=== PATIENT | female | born 1950 | race Caucasian/White ===

== ENCOUNTER → 2018-10-30 | Outpatient (CLI) | payer OTHER ==
[~2018-10-30] MED LIST: ASPI-496 PO; CHOL200024 PO; CRAN300T PO; ESOM20CA PO; LEVO100T5 PO; LORA-856 PO; RED600TA PO; VITA400T6 PO; potassium PO
== END | disposition home or self-care (01) ==
LOC: STAR 10:42
PROVIDERS: ATTEND Orthopaedic Surgery
DX: Z01.818 Encounter for other preprocedural examination (principal); M67.431 Ganglion, right wrist
CPT/HCPCS: 93005

== ENCOUNTER 2018-11-07 12:52 | Day surgery (SDC) | payer OTHER ==
[~2018-11-07] VITALS: Ht 168.9 cm; Wt 88.5 kg
[~2018-11-07 12:52] MED LIST changes: +BUPIVACAINE/PF 0.25% ONE; +EPINEPHRINE 1 MG/ML, 1ML ONE
[2018-11-07] MEDS ORDERED: LACTATED RINGERS 1,000 ML IV SCH (13:14)
[2018-11-07] MEDS ORDERED: AMLO-150 PO (13:16)
[2018-11-07 13:47] VITALS: BP 165/84
[2018-11-07] MEDS ORDERED: FENTANYL PF 250 MCG/5ML ONE (14:18)
[2018-11-07] MEDS ORDERED: MIDAZOLAM 1 MG/ML, 2ML ONE (14:18)
[2018-11-07] MEDS ORDERED: PROPOFOL 10 MG/ML, 20ML ONE (14:42)
[2018-11-07] MEDS ORDERED: ROCURONIUM 10MG/ML,5ML ONE (14:42)
[2018-11-07] MEDS ORDERED: ONDANSETRON 2MG/ML, 2ML ONE (14:43)
[2018-11-07] MEDS ORDERED: DEXAMETHASONE 4 MG/ML, 1ML ONE (14:43)
[2018-11-07] MEDS ORDERED: KETOROLAC 30 MG/1 ML ONE (14:59)
[2018-11-07] MEDS ORDERED: LABETALOL 5MG/ML, 20ML IV PRN (15:00)
[2018-11-07] MEDS ORDERED: ACETAMINOPHEN 325 MG TABLET PO PRN (15:00)
[2018-11-07] MEDS ORDERED: ONDANSETRON 2MG/ML, 2ML IV PRN (15:00)
[2018-11-07] MEDS ORDERED: HYDROmorphone 2 MG/ML, 1ML IVPush PRN (15:00)
[2018-11-07] MEDS ORDERED: PROMETHAZINE 25 MG/ML, 1ML IV PRN (15:00)
[2018-11-07] MEDS ORDERED: HYDROcodone/APAP 7.5-325MG/15ML UDC PO PRN (15:00)
[2018-11-07] MEDS ORDERED: MEPERIDINE/PF 25MG/0.5ML IVPush PRN (15:00)
[2018-11-07] MEDS ORDERED: hydrALAzine 20 MG/ML, 1ML IV PRN (15:00)
[2018-11-07] MEDS ORDERED: FENTANYL PF 100 MCG/2ML IV PRN (15:00)
[2018-11-07] MEDS ORDERED: CEFAZOLIN 1,000 MG ONE (15:08)
[2018-11-07] MEDS ORDERED: MEPERIDINE/PF 25MG/ML,1ML ONE (15:50)
== END 2018-11-07 17:30 | disposition home or self-care (01) ==
LOC: OUT 12:52
PROVIDERS: ATTEND Orthopaedic Surgery
DX: M67.431 Ganglion, right wrist (principal); I10 Essential (primary) hypertension; E03.9 Hypothyroidism, unspecified; Z88.8 Allergy status to other drugs, medicaments and biological substances
CPT/HCPCS: 25111; 88304; J0171; J0690; J1100; J1885; J2175; J2250; J2405; J2704; J3010; J3490; J7120